=== PATIENT | female | born 1940 | race Caucasian/White ===

== ENCOUNTER 2017-10-29 13:02 | Day surgery (SDC) | payer MEDICARE, BC ==
[~2017-10-29] VITALS: Ht 170.2 cm; Wt 94.1 kg
[~2017-10-29 13:02] MED LIST: ESTRACE0.5 MG PO; NORCO 325 MG-51 TAB PO; NORVASC 5MG5 MG/TAB PO; PYRIDIUM 100MG100 MG PO
[2017-10-29] MEDS ORDERED: NATURAL E400 IU PO (13:59)
[2017-10-29] MEDS ORDERED: SENOKOT S 50 MG1 TAB PO (14:03)
[2017-10-29] MEDS ORDERED: ADVIL200 MG PO (14:06)
[2017-10-29] MEDS ORDERED: B-121000 MCG PO (14:07)
[2017-10-29] MEDS ORDERED: BYSTOLIC2.5 MG PO (14:07)
[2017-10-29] MEDS ORDERED: MASON NATURAL2000 IU PO (14:08)
[2017-10-29 15:14] VITALS: BP 161/81; PULSE 77; TEMP 97.5
[2017-10-29 17:33] VITALS: BP 136/74; PULSE 76; TEMP 98.3
[2017-10-29 17:48] VITALS: BP 133/61; PULSE 70
[2017-10-29 18:03] VITALS: BP 128/68; PULSE 74
[2017-10-29 18:18] VITALS: BP 127/62; PULSE 71
[2017-10-29 18:47] VITALS: BP 136/64; PULSE 78
== END 2017-10-29 19:00 | disposition home or self-care (01) ==
LOC: SDCO 13:02 → SURG 17:34 → SDCO 19:00
DX: N20.2 Calculus of kidney with calculus of ureter (principal); I10 Essential (primary) hypertension; Z88.2 Allergy status to sulfonamides; Z88.8 Allergy status to other drugs, medicaments and biological substances; Z88.5 Allergy status to narcotic agent; Z87.891 Personal history of nicotine dependence; Z90.710 Acquired absence of both cervix and uterus
CPT/HCPCS: OP; C1769; C2617; J0690; J1170; J2405; J2704; J3010; J7120

== ENCOUNTER → 2018-07-12 | Outpatient (CLI) | payer MEDICARE, BC ==
[~2018-07-12] MED LIST changes: +ADVIL200 MG PO; +B-121000 MCG PO; +BYSTOLIC2.5 MG PO; +MASON NATURAL2000 IU PO; +NATURAL E400 IU PO; +SENOKOT S 50 MG1 TAB PO
== END ==
LOC: COL.RAD 09:31
DX: E21.2 Other hyperparathyroidism (principal); Z87.442 Personal history of urinary calculi; Z96.641 Presence of right artificial hip joint; Z98.890 Other specified postprocedural states
CPT/HCPCS: A9500